=== PATIENT | male | born 1965 | race Caucasian/White ===

== ENCOUNTER 2017-01-07 12:11 | Emergency (ER) | payer BC ==
[2017-01-07 12:20] VITALS: BP 125/74
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
--- NOTE | 2017-01-07 13:14 | RAD ---
INDICATION: Cough. COMPARISON: Comparison is made with prior study from October 09, 2011. TECHNIQUE: Dual-energy PA and lateral views of the chest were obtained. FINDINGS: The heart is within normal limits in size. Mediastinal and hilar contours appear within normal limits. The lungs are clear. No pleural effusion is present. IMPRESSION: NO EVIDENCE FOR ACTIVE CARDIOPULMONARY DISEASE.
== END 2017-01-07 13:19 | disposition home or self-care (01) ==
LOC: UCCORT 12:11
DX: J40 Bronchitis, not specified as acute or chronic (principal); S29.011A Strain of muscle and tendon of front wall of thorax, initial encounter; X58.XXXA Exposure to other specified factors, initial encounter; Y93.9 Activity, unspecified; Y92.9 Unspecified place or not applicable; M94.0 Chondrocostal junction syndrome [Tietze]; F41.9 Anxiety disorder, unspecified; F17.210 Nicotine dependence, cigarettes, uncomplicated
CPT/HCPCS: 71020; 93005; 99212; G0463

== ENCOUNTER 2017-05-30 08:18 | Emergency (ER) | payer BC ==
[2017-05-30 08:36] VITALS: BP 116/79
--- NOTE | 2017-05-30 08:47 | UC ---
Throat Pain/Nasal Ismael HPI - HPI Summary HPI Summary: sinus pain and pressure x 7 days + nasal congestion , cough , pnd, no fever, no chills - History of Current Complaint Chief Complaint: UCRespiratory Stated Complaint: SINUS COMPLAINT Time Seen by Provider: 05/30/17 08:43 Hx Obtained From: Patient Onset/Duration: Gradual Onset, Lasting Weeks - 1, Still Present Severity: Moderate Cough: Nonproductive Associated Signs & Symptoms: Positive: Sinus Discomfort, Nasal Discharge. Negative: Dysphagia, FB Sensation, Wheezing, Hoarseness, Fever, Rash - Allergies/Home Medications Allergies/Adverse Reactions: Allergies Allergy/AdvReac Type Severity Reaction Status Date / Time No Known Allergies Allergy Verified 05/30/17 08:29 Home Medications: Home Medications Dasatinib [Sprycel] 20 mg PO DAILY 05/30/17 [History Confirmed 05/30/17] PMH/Surg Hx/FS Hx/Imm Hx Previously Healthy: Yes Other History Of: Negative For: HIV, Hepatitis B, Hepatitis C, Anticoagulant Therapy - Surgical History Surgical History: Yes Surgery Procedure, Year, and Place: appendectomy. tonsillectomy - Family History Known Family History: Positive: Hypertension Negative: Cardiac Disease, Diabetes - Social History Alcohol Use: Weekly Alcohol Amount: twice weekly Substance Use Type: None Smoking Status (MU): Heavy Every Day Tobacco Smoker Type: Cigarettes Amount Used/How Often: 1/2 ppd Length of Time of Smoking/Using Tobacco: 30 years Household Exposure Type: Cigarettes - Immunization History Most Recent Influenza Vaccination: none Review of Systems Constitutional: Negative Skin: Negative Eyes: Negative ENT: Nasal Discharge, Sinus Congestion, Sinus Pain/Tenderness Respiratory: Cough Cardiovascular: Negative Gastrointestinal: Negative Genitourinary: Negative Is Patient Immunocompromised?: No All Other Systems Reviewed And Are Negative: Yes Physical Exam Triage Information Reviewed: Yes Appearance: Well-Appearing, No Pain Distress, Well-Nourished Vital Signs: Initial Vital Signs Temp 99.2 F 05/30/17 08:31 Pulse 66 05/30/17 08:31 Resp 18 05/30/17 08:31 BP 116/79 05/30/17 08:31 Pulse Ox 96 05/30/17 08:31 Vital Signs Reviewed: Yes Eyes: Positive: Conjunctiva Clear ENT: Positive: Normal ENT inspection, Pharyngeal erythema, Nasal congestion, Nasal drainage, TMs normal Neck: Positive: Supple, Nontender, No Lymphadenopathy Respiratory: Positive: Chest non-tender, Lungs clear, Normal breath sounds Cardiovascular: Positive: RRR, No Murmur, Pulses Normal Throat Pain/Nasal Course/Dx - Differential Dx/Diagnosis Provider Diagnoses: sinusitis Discharge - Discharge Plan Condition: Stable Disposition: HOME Prescriptions: Amoxicillin/Clavulanate TAB* [Augmentin TAB 875*] 875 mg PO BID #20 tab Patient Education Materials: Sinusitis (ED) Referrals: Elías Resendez DO [Primary Care Provider] - If Needed
== END 2017-05-30 08:54 | disposition home or self-care (01) ==
LOC: UCCORT 08:18
DX: J32.9 Chronic sinusitis, unspecified (principal); F17.210 Nicotine dependence, cigarettes, uncomplicated
CPT/HCPCS: 99212; G0463

== ENCOUNTER 2018-01-13 13:40 | Emergency (ER) | payer BC ==
[2018-01-13 13:58] VITALS: BP 125/72
--- NOTE | 2018-01-13 14:41 | UC ---
Abdominal Pain Male HPI - HPI Summary HPI Summary: C/O dull aching lower abdominal/ suprapubic pain with some lower back pain as well, more on the left side. No fevers/ sweats or chills. - History of Current Complaint Chief Complaint: UCAbdominalPain Stated Complaint: LOWER ABD PAIN Time Seen by Provider: 01/13/18 14:34 Hx Obtained From: Patient Onset/Duration: Sudden Onset, Lasting Weeks - 1, Still Present, Worse Since - onset Severity Initially: Mild Severity Currently: Moderate Pain Intensity: 5 Location: Suprapubic Radiates to: Back Character: Aching, Dull Associated Signs And Symptoms: Positive: Constipation. Negative: Fever, Blood in Stool, Vomiting, Diarrhea - Risk Factors Cardiac Risk Factors: Smoking - Allergies/Home Medications Allergies/Adverse Reactions: Allergies Allergy/AdvReac Type Severity Reaction Status Date / Time No Known Allergies Allergy Verified 01/13/18 13:50 Home Medications: Home Medications Ibuprofen TAB* [Advil TAB*] 400 mg PO Q6H PRN 01/13/18 [History Confirmed ] PMH/Surg Hx/FS Hx/Imm Hx - Additional Past Medical History Additional PMH: CML Other History Of: Negative For: HIV, Hepatitis B, Hepatitis C, Anticoagulant Therapy - Surgical History Surgical History: Yes Surgery Procedure, Year, and Place: appendectomy. tonsillectomy - Family History Known Family History: Positive: Hypertension Negative: Cardiac Disease, Diabetes - Social History Occupation: Employed Full-time Lives: With Family Alcohol Use: Occasionally Alcohol Amount: twice weekly Substance Use Type: None Smoking Status (MU): Light Every Day Tobacco Smoker Type: Cigarettes Amount Used/How Often: 1/2 ppd Length of Time of Smoking/Using Tobacco: 30 years Have You Smoked in the Last Year: Yes Household Exposure Type: Cigarettes Cessation Counseling: Patient Advised to Stop - Immunization History Most Recent Influenza Vaccination: none Review of Systems Gastrointestinal: Abdominal Pain Genitourinary: Urgency Is Patient Immunocompromised?: Yes - CML All Other Systems Reviewed And Are Negative: Yes Physical Exam Triage Information Reviewed: Yes Appearance: Well-Appearing, No Pain Distress, Well-Nourished Vital Signs: Initial Vital Signs Temp 98.6 F 01/13/18 13:51 Pulse 62 01/13/18 13:51 Resp 17 01/13/18 13:51 BP 125/72 01/13/18 13:51 Pulse Ox 98 01/13/18 13:51 Vital Signs Reviewed: Yes Eyes: Positive: Conjunctiva Clear ENT Exam: Normal ENT: Positive: Pharynx normal, TMs normal - but obstructing wax AD Dental: Positive: Dental Fracture @ Neck exam: Normal Respiratory Exam: Normal Cardiovascular Exam: Normal Abdomen Description: Positive: No Organomegaly, Soft. Negative: Nontender - LLQ suprapubic, CVA Tenderness (R), CVA Tenderness (L), Peritoneal Signs Bowel Sounds: Positive: Present Musculoskeletal Exam: Normal Neurological Exam: Normal Psychological Exam: Normal Skin Exam: Normal Abd Pain Male Course/Dx - Differential Dx/Clinical Impression Differential Diagnosis/HQI/PQRI: Prostatitis, Renal Colic, Ureteral Stone, Urinary Tract Infection Provider Diagnoses: Acute prostatitis Discharge - Sign-Out/Discharge Documenting (check all that apply): Discharge/Admit/Transfer - Discharge Plan Condition: Stable Disposition: HOME Prescriptions: DOXYcycline CAP(*) [DOXYcycline 100MG CAP(*)] 100 mg PO BID #30 cap Sulfamethox/Trimethoprim DS* [Bactrim DS 800/160 TAB*] 1 tab PO BID #30 tab Patient Education Materials: Prostatitis (ED), Doxycycline (By mouth) Referrals: Jorge Galvan DO [Primary Care Provider] - - Billing Disposition and Condition Condition: STABLE Disposition: HOME
== END 2018-01-13 14:55 | disposition home or self-care (01) ==
LOC: UCCORT 13:40
DX: N41.0 Acute prostatitis (principal); F17.210 Nicotine dependence, cigarettes, uncomplicated
CPT/HCPCS: 81003; 99212; G0463

== ENCOUNTER 2018-06-26 16:37 | Emergency (ER) | payer BC ==
--- OUTSIDE RECORDS SUMMARY | 2018-06-26 16:46 | XMS REPORT ---
:1965 External Reference #:[id number] Author Organization [facility] Address [address], [address] [place] [address] Phone [phone] Care Team Providers Name Role Phone Elías Resendez DO Care Team Information Automatic Developer Unavailable Jorge Galvan DO Primary Care Physician Unavailable Payers Type Date Identification Numbers Payment Provider Subscriber Commercial Expires: Policy Number: Josefina Cervantes 2011 [id number] PayID: [id number] [address] [address] Medigap Part B Effective: 2013 Policy Number: Josefina Cervantes [id number] PayID: [id number] [address] [address] Problems Date Description Provider Status Onset: 11/21/2011 Chest pain Fabian Arshad MD, PhD Active Onset: 11/21/2011 Benign essential hypertension Fabian Arshad MD, PhD Active Onset: 11/21/2011 Tobacco user Fabian Arshad MD, PhD Active Onset: 11/28/2011 Sterilization Rodo Roper MD Active Onset: 01/25/2018 Hematuria syndrome Iesha Gilmore M.D. Active Onset: 01/25/2018 Acute prostatitis Iesha Gilmore M.D. Active Onset: 01/25/2018 Benign prostatic hypertrophy with Iesha Gilmore M.D. Active outflow obstruction Onset: 10/13/2017 Hemorrhoids without complication Jorge Shah DO Active Onset: 10/13/2017 Anemia Alyssa DO Jorge Active Onset: 10/13/2017 Chronic myeloid leukemia in Jorge ShahDO Active remission Onset: 03/28/2017 Acute upper respiratory infection, Sruthililiana JorgeDO Active unspecified Onset: 03/20/2017 Chronic myeloid leukemia Jorge Shah DO Active Onset: 03/14/2017 Substance abuse counseling Minesh ShahewDO Active Onset: 03/14/2017 Leukocytosis Jorge Shah DO Active Family History Date Family Member(s) Problem(s) Comments General No known family history of CAD. Father Prostate Disease Father Enlarged Prostate Children 2 Healthy Siblings 5 Healthy Aunt due to Prostate Cancer () Social History Type Date Description Comments Marital Status Lives With Spouse Diet Patient follows no dietary restrictions Occupation [employer] Cigarette Use Current Cigarette Smoker 1 Pack Daily for 25 years ETOH Use Occasionally consumes alcohol ETOH Use Currently consumes alcohol socially Smoking Patient is a current smoker, smokes every day Recreational Drug Use Denies Drug Use Daily Caffeine Consumes on average 1 cup of regular coffee per day Allergies, Adverse Reactions, Alerts Date Description Reaction Status Severity Comments 09/13/2010 NKDA active Medications Medication Date Status Form Strength Qnty SIG Indications Ordering Provider Miralax 02/02 Active Packet 3350NF 36uni 1 to 2 K59.09 ts packets by Christopher mouth as Waylon Mcmillan needed constipation Metronidazole 02/02 Active Tablets 500mg 30tab 1 by mouth K57.30 s three times Christopher a day Waylon Mcmillan Nupercainal 02/02 Active Ointment 1% 85.2g use four C92.11 m times a day Christopher as needed on H.Alek. anus for pain Nitro-bid 02/02 Active Ointment 2% 60gm use pea C92.11 sized amount Christopher to anal area Waylon Mcmillan four times a day prn. hold for hypotension or headache or nausea Tamsulosin HCL 01/25 Active Capsules 0.4mg 30cap 1 by mouth N40.1 Deirdre, /2018 s every day at [facility], bedtime M.DKarri Sprycel 03/21 Active Tablets 100mg 30tab 1 by mouth C92.10 Alyssa, s every day Jorge, DO Doxycycline Active Capsules 100mg Tommy Matthew Hyclate /0000 Sulfamethoxazo Active Tablets 800-160mg Tommy Matthew le/Trimethopri / MD nevarez DS Amoxicillin/Cl 02/02 Hx Tablets 875-125mg 20tab 1 by mouth K57.30 Mayieimiladys avulanate s twice a day Floyd Mcmillan M.D. 02/12 Augmentin 03/28 Hx Tablets 500-125mg 21tab 1 by mouth J06.9 Alyssa, s three times Jorge, DO - a day 06/30 Oxycodone HCL 03/21 Hx Tablets 5mg 14tab 1 tablet by C92.10 Alyssa, s mouth every Jorge, DO - 6 hours as 06/30 needed Sprycel 03/20 Hx Tablets 100mg 30tab 1 tablet by C92.10 Alyssa, s mouth Jorge, DO - everyday 03/21 Chantix 03/14 Hx Tablets 1mg 30tab 1 tablet po Z71.6 Alyssa, s qday Jorge, DO - 06/30 Plavix 04/11 Hx Tablets 75mg 14tab 1 po qd 786.59 Fabian Arshad /Barbara Khan MD, PhD - 03/14 Alprazolam Hx Tablets 0.25mg 60tab 1/2 tab po Unknown /0000 s qd - 06/30 Alprazolam 00 Hx Tablets 0.25mg qday for Unknown /0000 anxiety prn - 02/02 Sulfamethoxazo Hx Tablets 800-160mg Tommy Matthew le/Trimethopri / MD roque CHING Sprycel Hx Tablets 100mg take 1 Unknown /0000 tablet by - mouth once 04/10 daily mdd mdd 1 mdd 1 Medications Administered in Office Medication Date Status Form Strength Qnty SIG Indications Ordering Provider Bone Marrow Administered Injection Merissa Shah DO W/Bone Marrow BX Through Same Incision Vital Signs Date Vital Result Comment 02/12/2018 BP Systolic 146 mmHg BP Diastolic 77 mmHg Body Temperature 97.9 F Heart Rate 87 /min Respiratory Rate 16 /min Weight 197.00 lb O2 % BldC Oximetry 98 % 02/02/2018 BP Systolic 157 mmHg BP Diastolic 84 mmHg Body Temperature 98.3 F Heart Rate 116 /min Respiratory Rate 19 /min Height 68 inches 5'8" Weight 199.00 lb BMI (Body Mass Index) 30.3 kg/m2 BSA (Body Surface Area) 2.04 m2 [place] body weight in kilograms 70 O2 % BldC Oximetry 97 % 01/25/2018 BP Systolic Sitting Left Arm 152 mmHg BP Diastolic Sitting Left Arm 92 mmHg Body Temperature 98.9 F Heart Rate 79 /min Height 68 inches 5'8" Weight 199.00 lb BMI (Body Mass Index) 30.3 kg/m2 BSA (Body Surface Area) 2.04 m2 [place] body weight in kilograms 70 O2 % BldC Oximetry 96 % 10/25/2017 BP Systolic Sitting Left Arm 120 mmHg BP Diastolic Sitting Left Arm 72 mmHg Heart Rate 68 /min Respiratory Rate 16 /min Height 68 inches 5'8" Weight 210.00 lb BMI (Body Mass Index) 31.9 kg/m2 BSA (Body Surface Area) 2.09 m2 [place] body weight in kilograms 70 10/13/2017 BP Systolic 140 mmHg BP Diastolic 84 mmHg Body Temperature 96.5 F Heart Rate 67 /min Weight 209.38 lb O2 % BldC Oximetry 99 % 06/30/2017 BP Systolic 140 mmHg BP Diastolic 76 mmHg Body Temperature 98.0 F Heart Rate 67 /min Weight 204.00 lb O2 % BldC Oximetry 97 % 03/28/2017 BP Systolic 118 mmHg BP Diastolic 79 mmHg Body Temperature 98.2 F Heart Rate 75 /min Weight 206.25 lb O2 % BldC Oximetry 96 % 03/20/2017 BP Systolic 147 mmHg BP Diastolic 95 mmHg Body Temperature 97.1 F Heart Rate 83 /min Weight 206.00 lb O2 % BldC Oximetry 97 % 03/14/2017 BP Systolic 141 mmHg BP Diastolic 90 mmHg Body Temperature 96.6 F Heart Rate 76 /min Height 68.6 inches 5'8.60" Weight 206.38 lb BMI (Body Mass Index) 30.8 kg/m2 BSA (Body Surface Area) 2.08 m2 [place] body weight in kilograms 71 O2 % BldC Oximetry 97 % 04/11/2014 BP Systolic Sitting Right Arm 128 mmHg BP Diastolic Sitting Right Arm 88 mmHg Heart Rate 65 /min Respiratory Rate 16 /min Height 67.50 inches 5'7.50" Weight 206.00 lb BMI (Body Mass Index) 31.8 kg/m2 BSA (Body Surface Area) 2.06 m2 04/10/2013 BP Systolic Sitting Right Arm 144 mmHg BP Diastolic Sitting Right Arm 88 mmHg Heart Rate 60 /min Respiratory Rate 18 /min Height 67.50 inches 5'7.50" Weight 201.00 lb BMI (Body Mass Index) 31.0 kg/m2 BSA (Body Surface Area) 2.04 m2 04/05/2012 BP Systolic Sitting Right Arm 128 mmHg BP Diastolic Sitting Right Arm 88 mmHg Heart Rate 82 /min Respiratory Rate 16 /min Height 67.50 inches 5'7.50" Weight 205.00 lb BMI (Body Mass Index) 31.6 kg/m2 01/04/2012 BP Systolic Sitting Right Arm 124 mmHg BP Diastolic Sitting Right Arm 94 mmHg Heart Rate 58 /min Regular Respiratory Rate 16 /min Height 67.50 inches 5'7.50" Weight 203.00 lb BMI (Body Mass Index) 31.3 kg/m2 11/28/2011 BP Systolic Sitting Right Arm 112 mmHg BP Diastolic Sitting Right Arm 77 mmHg Heart Rate 67 /min Respiratory Rate 16 /min Height 67.50 inches 5'7.50" Weight 201.00 lb BMI (Body Mass Index) 31.0 kg/m2 11/21/2011 BP Systolic Sitting Right Arm 126 mmHg BP Diastolic Sitting Right Arm 88 mmHg BP Systolic Sitting Left Arm 122 mmHg BP Diastolic Sitting Left Arm 90 mmHg Heart Rate 76 /min Regular Respiratory Rate 16 /min Height 67.50 inches 5'7.50" Weight 198.00 lb BMI (Body Mass Index) 30.6 kg/m2 09/13/2010 Height 67.50 inches 5'7.50" Weight 209.00 lb BMI (Body Mass Index) 32.2 kg/m2 Results Test Date Test Result H/L Range Note CBS W/Automated Diff 06/07/2018 White Blood Count 7.7 K/uL 3.4-10.5 1 Red Blood Count 4.68 M/uL 4.20-5.80 1 Hemoglobin 10.7 gm/dL Low 12.8-17.0 1 Hematocrit 32.0 % Low 38.0-48.0 1 Mean Cell Volume 68.4 fl Low 80.0-96.0 1 Mean Corpuscular HGB 22.9 pg Low 27.0-33.0 1 Mean Corpuscular HGB Conc 33.4 g/dL 31.7-36.0 1 Platelet Count 259 K/uL 155-360 1 Red Cell Distri Width SD 42.2 fl 36-51 1 Red Cell Distri Width %CV 18.4 % High 11.6-15.8 1 Mean Platelet Volume 10.9 fL High 6.6-10.6 1 Neut% 63.9 % 33.0-73.0 1 Lymph % 25.8 % 20.0-42.0 1 Cole % 8.3 % 0.0-10.0 1 Eo% 1.4 % 0.0-6.6 1 Bas% 0.6 % 0.0-1.1 1 Neut# 4.92 K/uL 1.8-7.0 1 Lymph # 1.99 K/uL 1.0-4.0 1 Cole # 0.64 K/uL 0.0-0.8 1 Eos # 0.11 K/uL 0.0-0.5 1 Baso # 0.05 K/uL 0.0-0.1 1 Comprehensive Metabolic Panel 06/07/2018 Glucose 92 mg/dL 74-106 1 BUN 20 mg/dL High 7-18 1 Creatinine 1.1 mg/dL 0.6-1.3 1 Glom Filtration Rate, Estimate >60 mL/min >60 1 If >60 mL/min >60 1, 2 BUN/Creat 18.1 ratio 1 Sodium 141 mmol/L 136-145 1 Potassium 3.9 mmol/L 3.5-5.1 1 Chloride 109 mmol/L High 98-107 1 Carbon Dioxide 26 mmol/L 21-32 1 Anion Gap 6 mEq/L Low 8-16 1 Calcium 8.3 mg/dL Low 8.5-10.1 1 Total Protein 7.3 g/dL 6.4-8.2 1 Albumin 3.9 g/dL 3.4-5.0 1 Globulin 3.4 g/dL 1.9-4.3 1 Alb/Glob 1.1 ratio 1 Bilirubin,Total 1.0 mg/dL 0.2-1.0 1 Sgot/Ast 18 U/L 15-37 1 SGPT/Alt 14 U/L 12-78 1 Alkaline Phosphatase 53 U/L 45-117 1 Slide Review 06/07/2018 Slide Review DIFF ORDERED 1 Laboratory test finding 06/07/2018 Path Review: <pending> 1 Differential-WBC Confirm 06/07/2018 Total Cells Counted 100 #CELLS 1 Neutrophils% 65 % 33-73 1 Lymph% 24 % 20-42 1 Monocyte% 8 % 0-10 1 Eosinophil% 2 % 0-5 1 Basophil% 1 % 0-2 1 Platelet Estimate NORMAL 1 Anisocytosis 1+ 1 Microcytosis 1+ 1 Basophilic Stippling 1+ 1 Ua RFX Micro & Culture II 01/25/2018 Urine Color YELLOW Yellow 3 Urine Clarity CLEAR Clear 3 Urine Glucose - Dipstick NEGATIVE mg/dL Negative 3 Urine Bilirubin - Dipstick NEGATIVE Negative 3 Urine Ketone NEGATIVE mg/dL Negative 3 Urine Specific [place] 1.020 1.010-1.030 3 Urine Blood SMALL Negative 3 Urine PH 7.0 6.5-7.5 3 Urine Protein - Dipstick NEGATIVE mg/dL Negative 3 Urine Urobilinogen - Dipstick 2.0 E.U./dL High 0.2-1.0 3 Urine Nitrite - Dipstick NEGATIVE Negative 3 Urine Leuk Esterase NEGATIVE Negative 3 Urine RBC 0-2 rbc/hpf 0-2 3 Urine WBC 0-2 wbc/hpf 0-7 3 Urine Epithelial Cells FEW /lpf None Seen 3 Source: URINE, CLEAN CAT <SEE NOTE> 3, 4 Urinalysis With Microscopic 01/22/2018 Source: Urine, Clean Cat <See Note> 5, 6 Urine Bacteria None Seen None Seen 5 Urine Bilirubin - Dipstick Negative Negative 5 Urine Blood Moderate Negative 5 Urine Clarity Clear Clear 5 Urine Color Yellow Yellow 5 Urine Epithelial Cells Few /lpf None Seen 5 Urine Glucose - Dipstick Negative mg/dL Negative 5 Urine Ketone Negative mg/dL Negative 5 Urine Leuk Esterase Negative Negative 5 Urine Nitrite - Dipstick Negative Negative 5 Urine PH 6.0 1 Low 6.5-7.5 5 Urine Protein - Dipstick Negative mg/dL Negative 5 Urine RBC 0-2 rbc/hpf 0-2 5 Urine Specific [place] 1.025 1 1.010-1.030 5 Urine Urobilinogen - Dipstick 0.2 E.U./dL 0.2-1.0 5 Urine WBC 0-2 wbc/hpf 0-7 5 Urinalysis With Microscopic 12/16/2017 Source: Urine, Clean Cat <See Note> 7, 8 Urine Bilirubin - Dipstick Negative Negative 7 Urine Blood Large Negative 7 Urine Clarity Clear Clear 7 Urine Color Yellow Yellow 7 Urine Epithelial Cells Very Few /lpf None Seen 7 Urine Glucose - Dipstick Negative mg/dL Negative 7 Urine Ketone Negative mg/dL Negative 7 Urine Leuk Esterase Negative Negative 7 Urine Mucus Small None Seen 7 Urine Nitrite - Dipstick Negative Negative 7 Urine PH 5.5 1 Low 6.5-7.5 7 Urine Protein - Dipstick 100 mg/dL High Negative 7 Urine RBC 0-2 rbc/hpf 0-2 7 Urine Specific [place] >=1.030 1.010-1.030 7 Urine Urobilinogen - Dipstick 0.2 E.U./dL 0.2-1.0 7 Urine WBC 0-2 wbc/hpf 0-7 7 Laboratory test finding 10/13/2017 Path Review: <pending> 9 RBC Morphology Only 10/13/2017 Microcytosis 2+ 9 Comment . 9 Slide Review 10/13/2017 Slide Review (SEE NOTE) 9, 10 Comprehensive Metabolic Panel 10/13/2017 Glucose 102 mg/dL 74-106 9 BUN 22 mg/dL High 7-18 9 Creatinine 1.1 mg/dL 0.6-1.3 9 Glom Filtration Rate, Estimate >60 mL/min >60 9 If >60 mL/min >60 9, 11 BUN/Creat 20.0 ratio 9 Sodium 140 mmol/L 136-145 9 Potassium 4.1 mmol/L 3.5-5.1 9 Chloride 109 mmol/L High 98-107 9 Carbon Dioxide 27 mmol/L 21-32 9 Anion Gap 4 mEq/L Low 8-16 9 Calcium 8.4 mg/dL Low 8.5-10.1 9 Total Protein 7.6 g/dL 6.4-8.2 9 Albumin 4.1 g/dL 3.4-5.0 9 Globulin 3.5 g/dL 1.9-4.3 9 Alb/Glob 1.2 ratio 9 Bilirubin,Total 0.8 mg/dL 0.2-1.0 9 Sgot/Ast 16 U/L 15-37 9 SGPT/Alt 17 U/L 12-78 9 Alkaline Phosphatase 54 U/L 45-117 9 [facility] W/Automated Diff 10/13/2017 White Blood Count 15.5 K/uL High 3.4-10.5 9 Red Blood Count 5.25 M/uL 4.20-5.80 9 Hemoglobin 11.5 gm/dL Low 12.8-17.0 9 Hematocrit 35.1 % Low 38.0-48.0 9 Mean Cell Volume 66.9 fl Low 80.0-96.0 9 Mean Corpuscular HGB 21.9 pg Low 27.0-33.0 9 Mean Corpuscular HGB Conc 32.8 g/dL 31.7-36.0 9 Platelet Count 235 K/uL 155-360 9 Red Cell Distri Width SD 41.7 fl 36-51 9 Red Cell Distri Width %CV 18.7 % High 11.6-15.8 9 Mean Platelet Volume 10.7 fL High 6.6-10.6 9 Neut% 63.6 % 33.0-73.0 9 Lymph % 27.8 % 20.0-42.0 9 Cole % 7.1 % 0.0-10.0 9 Eo% 1.0 % 0.0-6.6 9 Bas% 0.5 % 0.0-1.1 9 Neut# 9.88 K/uL High 1.8-7.0 9 Lymph # 4.32 K/uL High 1.0-4.0 9 Cole # 1.11 K/uL High 0.0-0.8 9 Eos # 0.16 K/uL 0.0-0.5 9 Baso # 0.07 K/uL 0.0-0.1 9 [facility] W/Automated Diff 06/30/2017 White Blood Count 15.7 K/uL High 3.4-10.5 12 Red Blood Count 5.00 M/uL 4.20-5.80 12 Hemoglobin 10.8 gm/dL Low 12.8-17.0 12 Hematocrit 33.2 % Low 38.0-48.0 12 Mean Cell Volume 66.4 fl Low 80.0-96.0 12, 13 Mean Corpuscular HGB 21.6 pg Low 27.0-33.0 12 Mean Corpuscular HGB Conc 32.5 g/dL 31.7-36.0 12 Platelet Count 181 K/uL 150-400 12 Red Cell Distri Width SD 48.2 fl 36-51 12 Red Cell Distri Width %CV 21.5 % High 11.6-15.8 12 Mean Platelet Volume 10.9 fL High 6.6-10.6 12 Neut% 58.2 % 33.0-73.0 12 Lymph % 27.3 % 20.0-42.0 12 Cole % 12.6 % High 0.0-10.0 12 Eo% 1.5 % 0.0-6.6 12 Bas% 0.4 % 0.0-1.1 12 Neut# 9.14 K/uL High 1.8-7.0 12 Lymph # 4.28 K/uL High 1.0-4.0 12 Cole # 1.98 K/uL High 0.0-0.8 12 Eos # 0.23 K/uL 0.0-0.5 12 Baso # 0.07 K/uL 0.0-0.1 12 Comprehensive Metabolic Panel 06/30/2017 Glucose 83 mg/dL 74-106 12 BUN 20 mg/dL High 7-18 12 Creatinine 1.2 mg/dL 0.6-1.3 12 Glom Filtration Rate, Estimate >60 mL/min >60 12 If >60 mL/min >60 12, 14 BUN/Creat 16.6 ratio 12 Sodium 141 mmol/L 136-145 12 Potassium 4.0 mmol/L 3.5-5.1 12 Chloride 111 mmol/L High 98-107 12 Carbon Dioxide 23 mmol/L 21-32 12 Anion Gap 7 mEq/L Low 8-16 12 Calcium 9.2 mg/dL 8.5-10.1 12 Total Protein 7.5 g/dL 6.4-8.2 12 Albumin 4.1 g/dL 3.4-5.0 12 Globulin 3.4 g/dL 1.9-4.3 12 Alb/Glob 1.2 ratio 12 Bilirubin,Total 0.7 mg/dL 0.2-1.0 12 Sgot/Ast 27 U/L 15-37 12 SGPT/Alt 14 U/L 12-78 12 Alkaline Phosphatase 60 U/L 45-117 12 Laboratory test finding 06/30/2017 Slide Review <pending> 12 Path Review: 06/30/2017 Path Review: (SEE NOTE) 12, 15 RBC Morphology Only 06/30/2017 Polychromasia 0-1+ 12 Hypochromia 0-1+ 12 Poikilocytosis 1+ 12 Anisocytosis 1+ 12 Microcytosis 1+ 12 Macrocytosis 0-1+ 12 Target Cells 1+ 12 Ovalocytes 0-1+ 12 RBC Morphology Only 06/12/2017 Polychromasia 0-1+ Hypochromia 0-1+ Poikilocytosis 0-1+ Anisocytosis 1+ Microcytosis 1+ Basophilic Stippling 0-1+ Spherocyte 0-1+ Tear Drop Cells 0-1+ Elliptocytes 0-1+ Laboratory test finding 06/12/2017 Slide Review <pending> Path Review: <pending> CBS W/Automated Diff 06/12/2017 White Blood Count 11.2 K/uL High 3.4-10.5 Red Blood Count 5.08 M/uL 4.20-5.80 Hemoglobin 10.7 gm/dL Low 12.8-17.0 Hematocrit 32.8 % Low 38.0-48.0 Mean Cell Volume 64.6 fl Low 80.0-96.0 Mean Corpuscular HGB 21.1 pg Low 27.0-33.0 Mean Corpuscular HGB Conc 32.6 g/dL 31.7-36.0 Platelet Count 296 K/uL 150-400 Red Cell Distri Width SD 46.6 fl 36-51 Red Cell Distri Width %CV 21.4 % High 11.6-15.8 Mean Platelet Volume 10.9 fL High 6.6-10.6 Neut% 64.5 % 33.0-73.0 Lymph % 25.0 % 20.0-42.0 Cole % 8.5 % 0.0-10.0 Eo% 1.6 % 0.0-6.6 Bas% 0.4 % 0.0-1.1 Neut# 7.21 K/uL High 1.8-7.0 Lymph # 2.80 K/uL 1.0-4.0 Cole # 0.95 K/uL High 0.0-0.8 Eos # 0.18 K/uL 0.0-0.5 Baso # 0.05 K/uL 0.0-0.1 Neutrophils/leuk NFr 04/16/2017 Neutrophils/leuk NFr 54.8 33.0-73.0 Bld Auto Bld Auto PMV Bld Auto 04/16/2017 PMV Bld Auto 10.0 6.6-10.6 Platelets [#/volume] 04/16/2017 Platelets [#/volume] 229 150-400 in Blood by in Blood by Automated count Automated count Potassium SerPl-sCnc 04/16/2017 Potassium SerPl-sCnc 4.1 3.5-5.1 Prot SerPl-mCnc 04/16/2017 Prot SerPl-mCnc 6.6 6.4-8.2 RDW RBC Auto 04/16/2017 RDW RBC Auto 38.8 36-51 RDW RBC Auto-Rto 04/16/2017 RDW RBC Auto-Rto 18.9 High 11.6-15.8 Serum or plasma 04/16/2017 Serum or plasma 372 73-393 lipase measurement lipase measurement (enzymatic acti (enzymatic activity/volume) Serum or plasma 04/16/2017 Serum or plasma 0.5 0.2-1.0 total bilirubin total bilirubin measurement (mass/ measurement (mass/volume) Sodium SerPl-sCnc 04/16/2017 Sodium SerPl-sCnc 143 136-145 Unloinc 04/16/2017 Unloinc See Note 16 WBC # Bld Auto 04/16/2017 WBC # Bld Auto 7.2 3.4-10.5 Amorphous sediment 04/16/2017 Amorphous sediment Small Negative 17 [Presence] in Urine [Presence] in Urine sediment by sediment by Light microscopy Color Ur 04/16/2017 Color Ur Yellow Yellow 17 Epithelial cells 04/16/2017 Epithelial cells None Seen None Seen 17 [Presence] in Urine [Presence] in Urine sediment by L sediment by Light microscopy Ketones Ur 04/16/2017 Ketones Ur Negative Negative 17 Strip.auto-mCnc Strip.auto-mCnc Leukocyte esterase 04/16/2017 Leukocyte esterase Negative Negative 17 Ur Ql Strip.auto Ur Ql Strip.auto Nitrite Ur Ql 04/16/2017 Nitrite Ur Ql Negative Negative 17 Strip.auto Strip.auto Prot Ur 04/16/2017 Prot Ur Negative Negative 17 Strip.auto-mCnc Strip.auto-mCnc Specific gravity of 04/16/2017 Specific gravity of 1.025 1.010-1.030 17 Urine by Automated Urine by Automated test strip test strip Urine appearance 04/16/2017 Urine appearance Clear Clear 17 determination determination Urine glucose 04/16/2017 Urine glucose Negative Negative 17 measurement by measurement by automated test strip automated test strip (mass/volume) Urine hemoglobin 04/16/2017 Urine hemoglobin Large High Negative 17 detection by detection by automated test strip automated test strip Urine total 04/16/2017 Urine total Negative Negative 17 bilirubin detection bilirubin detection by automated test by automated test strip Urobilinogen Ur 04/16/2017 Urobilinogen Ur 0.2 0.2-1.0 17 Strip-aCnc Strip-aCnc pH Ur Strip.auto 04/16/2017 pH Ur Strip.auto 5.5 Low 6.5-7.5 17 Urinalysis With 04/16/2017 Source: Urine, Clean 17, Microscopic Cat <See 18 Note> Urine Amorph Sediment Small Negative 17 Urine Bilirubin - Dipstick Negative Negative 17 Urine Blood Large Negative 17 Urine Clarity Clear Clear 17 Urine Color Yellow Yellow 17 Urine Epithelial Cells None Seen /lpf None Seen 17 Urine Glucose - Dipstick Negative mg/dL Negative 17 Urine Ketone Negative mg/dL Negative 17 Urine Leuk Esterase Negative Negative 17 Urine Nitrite - Dipstick Negative Negative 17 Urine PH 5.5 1 Low 6.5-7.5 17 Urine Protein - Dipstick Negative mg/dL Negative 17 Urine RBC 5-10 rbc/hpf High 0-2 17 Urine Specific [place] 1.025 1 1.010-1.030 17 Urine Urobilinogen - Dipstick 0.2 E.U./dL 0.2-1.0 17 Urine WBC 0-2 wbc/hpf 0-7 17 Alp SerPl-cCnc 04/16/2017 Alp SerPl-cCnc 73 45-117 Alt SerPl-cCnc 04/16/2017 Alt SerPl-cCnc 16 12-78 Albumin SerPl-mCnc 04/16/2017 Albumin SerPl-mCnc 3.7 3.4-5.0 Albumin/Glob SerPl 04/16/2017 Albumin/Glob SerPl 1.3 Anion Gap SerPl-sCnc 04/16/2017 Anion Gap SerPl-sCnc 7 Low 8-16 Aspartate 04/16/2017 Aspartate 16 15-37 aminotransferase aminotransferase [Enzymatic activity/vol [Enzymatic activity/volume] in Serum or Plasma Automated erythrocyte 04/16/2017 Automated erythrocyte 20.7 Low 27.0-33.0 mean corpuscular mean corpuscular hemoglobin hemoglobin (mass per erythrocyte) Automated erythrocyte 04/16/2017 Automated erythrocyte 33.3 31.7-36.0 mean corpuscular mean corpuscular hemoglobin hemoglobin concentration measurement (mass/volume) BUN SerPl-mCnc 04/16/2017 BUN SerPl-mCnc 21 High 7-18 BUN/Creat SerPl 04/16/2017 BUN/Creat SerPl 19.0 Basophils [#/volume] in 04/16/2017 Basophils [#/volume] in 0.04 0.0-0.1 Blood by Automated Blood by Automated count count Basophils/leuk NFr Bld 04/16/2017 Basophils/leuk NFr Bld 0.6 0.0-1.1 Auto Auto Blood erythrocytes 04/16/2017 Blood erythrocytes 5.22 4.20-5.80 automated count automated count (number/volume) (number/volume) Blood hemoglobin 04/16/2017 Blood hemoglobin 10.8 Low 12.8-17.0 measurement measurement (mass/volume) (mass/volume) Blood monocytes 04/16/2017 Blood monocytes 0.72 0.0-0.8 automated count automated count (number/volume) (number/volume) Neutrophils # Bld Auto 04/16/2017 Neutrophils # Bld Auto 3.97 1.8-7.0 Monocytes/leuk NFr Bld 04/16/2017 Monocytes/leuk NFr Bld 10.0 0.0-10.0 Auto Auto MCV RBC Auto 04/16/2017 MCV RBC Auto 62.1 Low 80.0-96.0 Lymphocytes/leuk NFr 04/16/2017 Lymphocytes/leuk NFr 32.8 20.0-42.0 Bld Auto Bld Auto Lymphocytes [#/volume] 04/16/2017 Lymphocytes [#/volume] 2.37 1.0-4.0 in Blood by Automated in Blood by Automated count count Hematologic slide 04/16/2017 Hematologic slide Ni review by pathologist review by pathologist Hct VFr Bld Auto 04/16/2017 Hct VFr Bld Auto 32.4 Low 38.0-48.0 Glucose [Mass/volume] 04/16/2017 Glucose [Mass/volume] 105 74-106 in Serum or Plasma in Serum or Plasma Globulin Ser Calc-mCnc 04/16/2017 Globulin Ser Calc-mCnc 2.9 1.9-4.3 Eosinophil/leuk NFr Bld 04/16/2017 Eosinophil/leuk NFr Bld 1.8 0.0-6.6 Auto Auto Eosinophil # Bld Auto 04/16/2017 Eosinophil # Bld Auto 0.13 0.0-0.5 Creat SerPl-mCnc 04/16/2017 Creat SerPl-mCnc 1.1 0.6-1.3 Chloride SerPl-sCnc 04/16/2017 Chloride SerPl-sCnc 113 High 98-107 Calcium SerPl-mCnc 04/16/2017 Calcium SerPl-mCnc 8.2 Low 8.5-10.1 Co2 SerPl-sCnc 04/16/2017 Co2 SerPl-sCnc 23 21-32 Differential-WBC 03/28/2017 Total Cells Counted 100 #CELLS 19 Confirm Band% 4 % 0-8 19 Neutrophils% 60 % 33-73 19 Lymph% 28 % 20-42 19 Atypical Lymph% 2 % 0-7 19 Monocyte% 2 % 0-10 19 Eosinophil% 2 % 0-5 19 Basophil% 2 % 0-2 19 Platelet Estimate NORMAL 19 Polychromasia 0-1+ 19 Anisocytosis 0-1+ 19 Microcytosis 2+ 19 Basophilic Stippling 0-1+ 19 Schistocytes 0-1+ 19 Differential Comment LARGE PLATELETS <SEE NOTE> 19, 20 Path Review: 03/28/2017 Path Review: YARY 19, 21 Slide Review 03/28/2017 Slide Review DIFF ORDERED 19 Comprehensive Metabolic Panel 03/28/2017 Glucose 69 mg/dL Low 74-106 19 BUN 20 mg/dL High 7-18 19 Creatinine 1.2 mg/dL 0.6-1.3 19 Glom Filtration Rate, Estimate >60 mL/min >60 19 If >60 mL/min >60 19, 22 BUN/Creat 16.6 ratio 19 Sodium 140 mmol/L 136-145 19 Potassium 4.0 mmol/L 3.5-5.1 19 Chloride 108 mmol/L High 98-107 19 Carbon Dioxide 24 mmol/L 21-32 19 Anion Gap 8 mEq/L 8-16 19 Calcium 8.5 mg/dL 8.5-10.1 19 Total Protein 7.1 g/dL 6.4-8.2 19 Albumin 3.8 g/dL 3.4-5.0 19 Globulin 3.3 g/dL 1.9-4.3 19 Alb/Glob 1.2 ratio 19 Bilirubin,Total 0.8 mg/dL 0.2-1.0 19 Sgot/Ast 17 U/L 15-37 19 SGPT/Alt 16 U/L 12-78 19 Alkaline Phosphatase 71 U/L 45-117 19 CBS W/Automated Diff 03/28/2017 White Blood Count 15.8 K/uL High 3.4-10.5 19 Red Blood Count 5.94 M/uL High 4.20-5.80 19 Hemoglobin 12.3 gm/dL Low 12.8-17.0 19 Hematocrit 37.1 % Low 38.0-48.0 19 Mean Cell Volume 62.5 fl Low 80.0-96.0 19 Mean Corpuscular HGB 20.7 pg Low 27.0-33.0 19 Mean Corpuscular HGB Conc 33.2 g/dL 31.7-36.0 19 Platelet Count 286 K/uL 150-400 19 Red Cell Distri Width SD 39.2 fl 36-51 19 Red Cell Distri Width %CV 19.5 % High 11.6-15.8 19 Mean Platelet Volume 11.9 fL High 6.6-10.6 19, 23 Neut# 10.78 K/uL High 1.8-7.0 19 Lymph # 3.60 K/uL 1.0-4.0 19 Cole # 0.84 K/uL High 0.0-0.8 19 Eos # 0.15 K/uL 0.0-0.5 19 Baso # 0.45 K/uL High 0.0-0.1 19 Total Cells Counted 03/28/2017 Total Cells Counted 100 Bld Bld Neuts Seg/leuk NFr 03/28/2017 Neuts Seg/leuk NFr 60 33-73 Bld Manual Bld Manual Neuts Band/leuk NFr 03/28/2017 Neuts Band/leuk NFr 4 0-8 Bld Manual Bld Manual Monocytes/100 03/28/2017 Monocytes/100 2 0-10 leukocytes in Blood leukocytes in Blood by Manual count by Manual count Lymphocytes/100 03/28/2017 Lymphocytes/100 28 20-42 leukocytes in Blood leukocytes in Blood by Manual coun by Manual count Lymphocytes 03/28/2017 Lymphocytes 2 0-7 variant/100 variant/100 leukocytes in blood leukocytes in blood by man by manual count Eosinophil % 03/28/2017 Eosinophil % 2 0-5 Blood platelet 03/28/2017 Blood platelet Normal adequacy detection by adequacy detection light microsc by light microscopy Blood microcytes 03/28/2017 Blood microcytes 2+ detection by light detection by light microscopy microscopy Blood manual 03/28/2017 Blood manual Large Platelets differential comment differential comment Present interpretation n interpretation narrative Basophils/100 03/28/2017 Basophils/100 2 0-2 leukocytes in Blood leukocytes in Blood by Manual count by Manual count Helen direct serum 03/14/2017 Helen direct serum Negative Negative CRP SerPl hs-mCnc 03/14/2017 CRP SerPl hs-mCnc 2.68 <3.0 Dilute Jadon viper 03/14/2017 Dilute Jadon viper 39.5 0.0-47.0 venom time venom time Erythrocyte 03/14/2017 Erythrocyte 1 0-15 sedimentation rate by sedimentation rate 15 minute readin by 15 minute reading LA PPP-Imp 03/14/2017 LA PPP-Imp Comment: . Lupus anticoagulant 03/14/2017 Lupus anticoagulant 35.5 0.0-51.9 neutralization neutralization platelet time i platelet time in platelet poor plasma by coagulation assay Myelocytes/100 03/14/2017 Myelocytes/100 1 High -0 leukocytes in Blood leukocytes in Blood by Manual count by Manual count Rheumatoid factor 03/14/2017 Rheumatoid factor 61.4 High 0.0-15.0 [units/volume] in [units/volume] in serum by nephl serum by nephlometry Serum or plasma 03/14/2017 Serum or plasma 10.6 3.1-17.5 folate measurement folate measurement (mass/volume) (mass/volume) Serum or plasma 03/14/2017 Serum or plasma 1006 High 193-986 vitamin B12 vitamin B12 measurement measurement (mass/volu (mass/volume) TSH SerPl-aCnc 03/14/2017 TSH SerPl-aCnc 0.78 0.30-4.20 Urate SerPl-mCnc 03/14/2017 Urate SerPl-mCnc 7.9 High 3.5-7.2 C-Reactive 03/14/2017 C-Reactive < 2.9 mg/L <3.0 24 Protein,Quant Protein,Quant Reflex add FT3? Y 24 Reflex add FT4? Y 24 CBS W/Automated Diff 03/14/2017 White Blood Count 15.9 K/uL High 3.4-10.5 24 Red Blood Count 6.31 M/uL High 4.20-5.80 24 Hemoglobin 12.9 gm/dL 12.8-17.0 24 Hematocrit 38.7 % 38.0-48.0 24 Mean Cell Volume 61.3 fl Low 80.0-96.0 24 Mean Corpuscular HGB 20.4 pg Low 27.0-33.0 24 Mean Corpuscular HGB Conc 33.3 g/dL 31.7-36.0 24 Platelet Count 239 K/uL 150-400 24 Red Cell Distri Width SD 39.3 fl 36-51 24 Red Cell Distri Width %CV 19.6 % High 11.6-15.8 24 Mean Platelet Volume 12.0 fL High 6.6-10.6 24, 25 Neut# 11.18 K/uL High 1.8-7.0 24 Lymph # 2.94 K/uL 1.0-4.0 24 Cole # 1.07 K/uL High 0.0-0.8 24 Eos # 0.21 K/uL 0.0-0.5 24 Baso # 0.52 K/uL High 0.0-0.1 24 C-Reactive Protein,Cardiac 03/14/2017 C-Reactive Protein,Cardiac 2.68 mg/L <3.0 24 Reflex add FT3? Y 24 Reflex add FT4? Y 24 Rheumatoid Panel ([facility]) 03/14/2017 Sedimentation Rate 1 mm/hr 0-15 24, 26 Anti-Nuclear Antibodies Direct Negative AU/mL Negative 24 C-Reactive Protein,Quant <pending> 24 Uric Acid 03/14/2017 Uric Acid 7.9 mg/dL High 3.5-7.2 24 Reflex add FT3? Y 24 Reflex add FT4? Y 24 Rheumatoid Factor 03/14/2017 Rheumatoid Factor 61.4 IU/mL High 0.0-15.0 24 Screen Screen Reflex add FT3? Y 24 Reflex add FT4? Y 24 Differential-WBC Confirm 03/14/2017 Total Cells Counted 100 #CELLS 24 Myelocyte% 1 % High -0 24 Neutrophils% 72 % 33-73 24 Lymph% 21 % 20-42 24 Monocyte% 5 % 0-10 24 Eosinophil% 1 % 0-5 24 Platelet Estimate NORMAL 24 Polychromasia 0-1+ 24 Anisocytosis 0-1+ 24 Microcytosis 2+ 24 Tear Drop Cells 0-1+ 24 Path Review: 03/14/2017 Path Review: INDICATED,SLIDE <SEE 24, 27 NOTE> Slide Review 03/14/2017 Slide Review DIFF ORDERED 24 Vitamin B12 And 03/14/2017 Vitamin B12 1006 pg/mL High 193-986 24 Folate Folic Acid 10.6 ng/mL 3.1-17.5 24 Reflex add FT3? Y 24 Reflex add FT4? Y 24 TSH Reflex FT4 And/Or FT3 03/14/2017 Thyroid Stim Hormone 0.78 uIU/mL 0.30-4.20 24 Reflex add FT3? Y 24 Reflex add FT4? Y 24 Lupus Anticoagulant Reflex 03/14/2017 PTT-LA 35.5 sec 0.0-51.9 24, 28 DRVVT 39.5 sec 0.0-47.0 24 Note: Comment: . 24, 29 Lyme AB/Western Blot 03/14/2017 Lyme Total AB/Reflex < 0.91 ISR 0.00- 0.90 24, 30 Reflex To WB Lyme Disease Antibody,QT,Igm <0.80 index 0.00-0.79 24, 31 CBC W/Automated Diff 04/21/2014 White Blood Count 10.5 K/uL 3.4-10.5 Red Blood Count 6.02 M/uL High 4.20-5.80 Hemoglobin 12.4 gm/dL Low 12.8-17.0 Hematocrit 37.6 % Low 38.0-48.0 Mean Cell Volume 62.5 fl Low 80.0-96.0 Mean Corpuscular HGB 20.6 pg Low 27.0-33.0 Mean Corpuscular HGB Conc 33.0 g/dL 31.7-36.0 Platelet Count 230 K/uL 150-400 Red Cell Distri Width SD 38.2 fl 36-51 Red Cell Distri Width %CV 18.7 % High 11.6-15.8 Mean Platelet Volume 12.4 fL High 6.6-10.6 Neut# 6.33 K/uL 1.8-7.0 Lymph # 3.05 K/uL 1.2-4.0 Cole # 0.87 K/uL High 0.0-0.6 Eos # 0.14 K/uL 0.0-0.5 Baso # 0.10 K/uL 0.1-0.2 LDL Cholesterol Profile 04/21/2014 Cholesterol 164 mg/dL 120-200 Triglycerides 120 mg/dL 16-231 HDL Cholesterol 37 mg/dL 29-83 LDL-Cholesterol 103 mg/dL 62-185 Comprehensive Metabolic Panel 04/21/2014 Glucose 90 mg/dL 76-115 BUN 22 mg/dL 5-23 Creatinine 1.0 mg/dL 0.5-1.4 Glom Filtration Rate, Estimate >60 mL/min >60 If >60 mL/min >60 32 BUN/Creat 22.0 ratio Sodium 140 mmol/L 136-145 Potassium 4.3 mmol/L 3.5-5.1 Chloride 109 mmol/L High 98-107 Carbon Dioxide 26 mEq/L 18-29 Anion Gap 9 mEq/L 8-16 Calcium 9.1 mg/dL 8.5-10.1 Total Protein 7.5 g/dL 6.3-8.0 Albumin 4.2 g/dL 3.5-5.0 Globulin 3.3 g/dL 1.9-4.3 Alb/Glob 1.3 ratio Bilirubin,Total 0.7 mg/dL 0.2-1.2 Sgot/Ast 17 U/L 16-40 SGPT/Alt 19 U/L Low 30-65 Alkaline Phosphatase 80 U/L 50-136 Differential-WBC Confirm 04/21/2014 Total Cells Counted 100 #CELLS Myelocyte% 1 % High -0 Band% 1 % 0-8 Neutrophils% 61 % 33-73 Lymph% 28 % 17-56 Atypical Lymph% 2 % 0-7 Monocyte% 5 % 0-10 Eosinophil% 2 % 0-5 Platelet Estimate NORMAL Anisocytosis 1+ Microcytosis 1+ Differential Comment See Note 33 Laboratory test finding 12/15/2011 Vasectomy (Sterilization) See Note 34 1 C92.11 2 Note: Persistent reduction for 3 months or more in an eGFR <60 mL/min/1.73 m2 defines CKD. Patients with eGFR values >/=60 mL/min/1.73 m2 may also have CKD if evidence of persistent proteinuria is present. The original MDRD equation for estimated GFR is not valid for patients less than 18 years of age. Additional information may be found at www.kdoqi.org. 3 N39.0 4 URINE, CLEAN CATCH 5 BACK PAIN, LOWER ABDOMINAL PAIN 6 URINE, CLEAN CATCH 7 POSS FLU, FATUGE, BODY ACHES, COUGH 8 URINE, CLEAN CATCH 9 C92.11 10 Instrument flagged sample for slide review. Less than 10% Bands seen, no other immature WBC's seen. Platelet estimate=NORMAL 11 Note: Persistent reduction for 3 months or more in an eGFR <60 mL/min/1.73 m2 defines CKD. Patients with eGFR values >/=60 mL/min/1.73 m2 may also have CKD if evidence of persistent proteinuria is present. The original MDRD equation for estimated GFR is not valid for patients less than 18 years of age. Additional information may be found at www.kdoqi.org. 12 C92.11, 13 Result confirmed by repeat analysis. 14 Note: Persistent reduction for 3 months or more in an eGFR <60 mL/min/1.73 m2 defines CKD. Patients with eGFR values >/=60 mL/min/1.73 m2 may also have CKD if evidence of persistent proteinuria is present. The original MDRD equation for estimated GFR is not valid for patients less than 18 years of age. Additional information may be found at www.kdoqi.org. 15 Reviewed previous history, path review not indicated 16 Instrument flagged sample for slide review. Less than 10% Bands seen, no other immature WBC's seen. RBC morphology essentially normal. Platelet estimate= Normal 17 KIDNEY STONE? 18 URINE, CLEAN CATCH 19 C92.10 20 LARGE PLATELETS PRESENT 21 Reviewed previous history, path review not indicated SLIDE SENT FOR MCV<70 03/14/17 22 Note: Persistent reduction for 3 months or more in an eGFR <60 mL/min/1.73 m2 defines CKD. Patients with eGFR values >/=60 mL/min/1.73 m2 may also have CKD if evidence of persistent proteinuria is present. The original MDRD equation for estimated GFR is not valid for patients less than 18 years of age. Additional information may be found at www.kdoqi.org. 23 03/28/17 1738: NEUT% previously reported as: 68.2 % Amended result called to: [] - 03/28/17 at 1738 03/28/17 1738: LYMPH % previously reported as: 22.8 % Amended result called to: [] - 03/28/17 at 1738 03/28/17 1738: MONO % previously reported as: 5.3 % Amended result called to: [] - 03/28/17 at 1738 03/28/17 1738: EO% previously reported as: 0.9 % Amended result called to: [] - 03/28/17 at 1738 03/28/17 1738: BAS% previously reported as: 2.8 H % Amended result called to: [] - 03/28/17 at 1738 24 D72.829 25 03/14/17 1153: NEUT% previously reported as: 70.2 % Amended result called to: [] - 03/14/17 at 1153 03/14/17 1153: LYMPH % previously reported as: 18.5 L % Amended result called to: [] - 03/14/17 at 1153 03/14/17 1153: MONO % previously reported as: 6.7 % Amended result called to: [] - 03/14/17 at 1153 03/14/17 1153: EO% previously reported as: 1.3 % Amended result called to: [] - 03/14/17 at 1153 03/14/17 1153: BAS% previously reported as: 3.3 H % Amended result called to: [] - 03/14/17 at 1153 26 Method: Sediplast Modified Gabinoergnorberto 27 INDICATED,SLIDE SENT Hematology Consultation Final Report Case# [id number] Final Diagnosis Review of Peripheral Blood Smear Review of peripheral blood smear confirms the hemogram findings. There is no anemia, but there is marked microcytosis, anisocytosis and hypochromia. No leptocytes ("pencil" cells) or target cells are present. Frequest dacryocytes ("tear-drop" RBCs) and RBCs with fine and coarse basophilic stippling are noted. RBC count is increased. Work-up for thalassemia minor is recommended. Because of the presence of coarse basophilic stippling along with microcytosis and hypochromia, lead level in the blood should be checked. S 03/15/17 Gross Description Peripheral blood smear Clinical Data MCV <70 Iqra Chen MD Reported 03/15/2017 at 3:59 PM, Report electronically signed Performed at: [facility] [id number] [place] [address] 03/17/17 0931: PATH REVIEW: previously reported as: INDICATED,SLIDE SENT Amended result called to: - 03/17/17 at 0931 28 Please note reference interval change 29 No lupus anticoagulant was detected. 30 Negative <0.91 Equivocal 0.91 - 1.09 Positive >1.09 31 Negative <0.80 Equivocal 0.80 - 1.19 Positive >1.19 IgM levels may peak at 3-6 weeks post infection, then gradually decline. Performed at: - [facility] [id number] [employer] Designer: Princess Mary MD, Phone: [phone] Performed at: - [facility] [address] [id number] [employer]er: Michelle Mitchell MD, Phone: [phone] Note: Persistent reduction for 3 months or more in an eGFR <60 mL/min/1.73 m2 defines CKD. Patients with eGFR values >/=60 mL/min/1.73 m2 may also have CKD if evidence of persistent proteinuria is present. The original MDRD equation for estimated GFR is not valid for patients less than 18 years of age. Additional information may be found at www.kdoqi.org. 33 LARGE PLATELETS PRESENT 34 OPERATION/PROCEDURE Bilateral vasectomy DIAGNOSIS: "VAS DEFERENS, RIGHT \\E&E\\ LEFT, BILATERAL VASECTOMY": COMPLETE CROSS SECTIONS SEEN. WYAlfredo/luis felipe 1430 GROSS Part 1; The specimen is received in a single container additionally labeled "RIGHT". This contains a wilburn cylindrical 1.3 cm. in length piece of grossly recognizable vas deferens. This is sectioned and submitted within a single cassette. Part 2; The specimen is received in a single container additionally labeled "LEFT". This contains a wilburn cylindrical 1.7 cm. in length piece of grossly recognizable vas deferens. This is sectioned and submitted within a single cassette. WS/luis felipe MICROSCOPIC Sections from both vas show complete cross sections of normal appearing vas deferens. PRE OPERATIVE DIAGNOSIS Sterilization REVIEW CODE CODE: I PRINCESS Saravia MD 12/16/11 1525 Procedures Date CPT Code Description Status 01/25/2018 20988 Measurement Post Voiding Residual Urine By Completed Ultrasound,Non-Imaging 01/25/2018 37564 complex uroflowmetry electronic Completed 11/16/2017 74384 Echocardiogram Complete Completed 10/25/2017 08252 EKG-Tracing And Report Completed 03/21/2017 19747 Biopsy, Needle/Trocar Completed 04/11/2014 96048 EKG-Tracing And Report Completed 04/10/2013 98190 EKG-Tracing And Report Completed 01/05/2012 61842 ECHO [employer] Performance Continuous Completed Electrocardio 01/04/2012 65339 EKG-Tracing And Report Completed 01/04/2012 97762 EKG-Tracing And Report Completed 01/04/2012 22241 EKG-Tracing And Report Completed 12/15/2011 05571 Vasectomy, unilat or bilat Completed 11/21/2011 87088 EKG-Tracing And Report Completed 11/02/2011 26461 Holter Monitor 24HR Inter/Report Completed 08/28/2006 Colonoscopy Completed Encounters Type Date Location Provider CPT E/M Dx Office Visit 02/12/2018 8:30a [place] [address] C92.11 D64.9 Office Visit 02/02/2018 12:45p Surgical Office Floyd Mcdaniels 87323 K59.09 Waylon Mcmillan K57.30 K60.2 C92.11 Office Visit 01/25/2018 1:00p Urology Iesha Gilmore M.D. 77609 N40.1 N41.0 R31.9 Office Visit 10/25/2017 1:40p Cardiology Office Nghia Clement, [address] C92.11 Waylon, [facility] Office Visit 10/13/2017 8:30a [place] [address] C92.11 F17.210 J06.9 D64.9 K64.9 Office Visit 06/30/2017 8:45a [place] [address] C92.11 F17.210 Office Visit 04/25/2017 1:30p [place] [address] C92.10 F17.210 Office Visit 03/28/2017 10:00a [place] [address] C92.10 F17.210 J06.9 Office Visit 03/20/2017 10:00a [place] [address] C92.10 F17.210 Office Visit 03/14/2017 10:00a [place] [address] D72.829 Z71.6 Office Visit 04/11/2014 8:30a Cardiology [place]ros Roach ANP 49[address] 786.59 305.1 401.1 Office Visit 04/10/2013 10:45a [place] [address] 786.59 401.1 Office Visit 04/05/2012 1:10p [place] [address] 786.59 401.1 Office Visit 01/04/2012 2:20p [place] [address] 786.59 401.1 305.1 Office Visit 11/28/2011 10:15a [place] [address] V25.2 V15.82 300.00 Office Visit 11/21/2011 9:00a [place] [address] 786.50 786.50 272.2 272.2 401.1 305.1 305.1 Office Visit 11/02/2011 4:09p [place] [address] 786.50 Office Visit 09/13/2010 10:15a [place] [address] 843.8 Plan of Care 06/13/2018 - Jorge Shah, DOC92.11 Chronic myeloid leukemia, BCR/Abl- positive, in remissionFollow up:4 [id number] Anemia, unspecified
[2018-06-26 17:01] VITALS: BP 129/74
--- NOTE | 2018-06-26 18:12 | UC ---
Respiratory Complaint HPI - HPI Summary HPI Summary: The patient is a 52-year-old male that presents here with cough and wheezing for approximately 2 weeks. He has been hoarse. His cough is productive of sputum. He has had chills. He has had bronchitis in the past. 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 Denies any history of pneumonia.for the past 2 days he has had left post thoracic back pain. - History of Current Complaint Chief Complaint: UCBackPain Stated Complaint: BACK COMPLAINT, ST, COUGH Time Seen by Provider: 06/26/18 18:00 Hx Obtained From: Patient Onset/Duration: Gradual Onset, Lasting Days Timing: Constant Severity Initially: Moderate Severity Currently: Moderate Pain Intensity: 5 Pain Scale Used: 0-10 Numeric Character: Cough: Productive Aggravating Factors: Nothing Alleviating Factors: Nothing Associated Signs And Symptoms: Positive: Chills, Wheezing, Nasal Congestion, Hoarseness. Negative: Dyspnea, Fever, Pleuritic Chest Pain, Hemoptysis, Dizziness, Calf Pain, Calf Swelling, Edema, URI, Sinus Discomfort - Allergies/Home Medications Allergies/Adverse Reactions: Allergies Allergy/AdvReac Type Severity Reaction Status Date / Time No Known Allergies Allergy Verified 06/26/18 17:01 PMH/Surg Hx/FS Hx/Imm Hx Previously Healthy: Yes Respiratory History: Bronchitis Cancer History: Other Other Cancer History: CML Other History Of: Negative For: HIV, Hepatitis B, Hepatitis C, Anticoagulant Therapy - Surgical History Surgical History: Yes Surgery Procedure, Year, and Place: appendectomy. tonsillectomy - Family History Known Family History: Positive: Hypertension Negative: Cardiac Disease, Diabetes - Social History Alcohol Use: Occasionally Alcohol Amount: twice weekly Substance Use Type: None Smoking Status (MU): Light Every Day Tobacco Smoker Type: Cigarettes Amount Used/How Often: 1/2 ppd Length of Time of Smoking/Using Tobacco: 30 years Have You Smoked in the Last Year: Yes Household Exposure Type: Cigarettes - Immunization History Most Recent Influenza Vaccination: none Review of Systems Constitutional: Negative Skin: Negative Eyes: Negative ENT: Negative Respiratory: Cough Cardiovascular: Negative Gastrointestinal: Negative Genitourinary: Negative Motor: Negative Neurovascular: Negative Musculoskeletal: Negative Neurological: Negative Psychological: Negative All Other Systems Reviewed And Are Negative: Yes Physical Exam Triage Information Reviewed: Yes Appearance: Well-Appearing, No Pain Distress, Well-Nourished Vital Signs: Initial Vital Signs Temp 98.9 F 06/26/18 16:54 Pulse 64 06/26/18 16:54 Resp 17 06/26/18 16:54 BP 129/74 06/26/18 16:54 Pulse Ox 100 06/26/18 16:54 Vital Signs Reviewed: Yes Eyes: Positive: Conjunctiva Clear ENT: Positive: TMs normal - Left OK , Right -unable to vis due to cerumen, Hoarse voice, Uvula midline. Negative: Hearing grossly normal, Pharyngeal erythema, Nasal congestion, Nasal drainage, Tonsillar swelling, Tonsillar exudate, Trismus, Muffled voice, Sinus tenderness Neck: Positive: Supple, Nontender, No Lymphadenopathy Respiratory: Positive: No respiratory distress, No accessory muscle use, Wheezing Cardiovascular: Positive: RRR, No Murmur Musculoskeletal: Positive: ROM Intact, No Edema Neurological: Positive: Alert, Muscle Tone Normal Psychological Exam: Normal Skin: Positive: Other - lesion below left eye suspicous for BCC UC Diagnostic Evaluation - Laboratory O2 Sat by Pulse Oximetry: 100 - normal/not hypoxic - Radiology Radiology Interpretation Completed By: ED Physician Summary of Radiographic Findings: NAD Respiratory Course/Dx - Differential Dx/Diagnosis Provider Diagnoses: Acute bronchitis with bronchospasm Discharge - Sign-Out/Discharge Documenting (check all that apply): Patient Departure All imaging exams completed and their final reports reviewed: No - Discharge Plan Condition: Stable Disposition: HOME Prescriptions: Amoxicillin PO (*) [Amoxicillin 875 MG (*)] 875 mg PO BID #14 tab predniSONE [Deltasone 20 MG TAB] 40 mg PO DAILY #10 tab Patient Education Materials: Acute Bronchitis (ED) Referrals: Jorge Galvan DO [Primary Care Provider] - 2 Days () Additional Instructions: recheck for new or worsening symptoms YOUR OFFICAL XR READING IS PENDING YOU CAN CALL TOMORROW LATE MORNING FOR THE RESULTS [phone] - Billing Disposition and Condition Condition: STABLE Disposition: Home
[2018-06-26] MEDS ORDERED: predniSONE TAB* 20 MG PO ONE (18:44)
[2018-06-26] MEDS ORDERED: Albuterol HFA INHALER* 8 gm MDI INH ONE (18:44)
--- NOTE | 2018-06-27 07:50 | RAD ---
Indication: Wheezing, back pain. 2 views the chest including dual energy PA views are reviewed and compared to previous exam dated January 07, 2017. No mediastinal shift is noted. Heart is of normal size and configuration. Lung luther show no pleural fluid, pneumonia or pneumothorax. IMPRESSION: No active cardiopulmonary disease is noted. R0
--- NOTE | 2018-06-27 08:21 | UC ---
- Progress Note Progress Note: Patient Name: BETO FARIAS Medical Record#: [id number] Ordering Physician: Chaim Blanco MD Acct.#: [id number] : 1965 Age: 52 Sex: M Location: [facility] Exam Date: 06/26/181811 ADM Status: DEP ER Order Information: CHEST PA & LAT 2 VWS Accession Number: [id number] CPT: 28469 Indication: Wheezing, back pain. 2 views the chest including dual energy PA views are reviewed and compared to previous exam dated January 07, 2017. No mediastinal shift is noted. Heart is of normal size and configuration. Lung luther show no pleural fluid, pneumonia or pneumothorax. IMPRESSION: No active cardiopulmonary disease is noted. R0 <Electronically signed by Marichuy Mendez MD in OV> 06/27/18746 Dictated By: Marichuy Mendez MD Dictated Date/Time: 06/27/18746 Transcribed Date/Time: 06/27/18745 Copy to: CC:Chaim Blanco MD; Jorge Galvan DO Imaging [facility] [address] [address] ph ([phone]) ph ([phone]) ph ([phone]) This report is only to be considered final once signed by the Provider(s) as displayed in the "<Electronically Signed by >" field (s). Absence of a signature indicates the report is in a draft status and still needs to be finalized. In the event this document was created by someone other than the signing Provider, the individual initiating the document will be listed in the "Entered by:" or "Dictated by:" luther. 1 of 1 Discharge - Sign-Out/Discharge Documenting (check all that apply): Post-Discharge Follow Up All imaging exams completed and their final reports reviewed: No - Discharge Plan Condition: Stable Disposition: HOME Prescriptions: Amoxicillin PO (*) [Amoxicillin 875 MG (*)] 875 mg PO BID #14 tab predniSONE [Deltasone 20 MG TAB] 40 mg PO DAILY #10 tab Patient Education Materials: Acute Bronchitis (ED) Referrals: Jorge Galvan DO [Primary Care Provider] - 2 Days () Additional Instructions: recheck for new or worsening symptoms YOUR OFFICAL XR READING IS PENDING YOU CAN CALL TOMORROW LATE MORNING FOR THE RESULTS [phone] - Billing Disposition and Condition Condition: STABLE Disposition: Home
--- NOTE | 2018-06-27 08:22 | UC ---
Discharge - Sign-Out/Discharge Documenting (check all that apply): Post-Discharge Follow Up All imaging exams completed and their final reports reviewed: Yes - Discharge Plan Condition: Stable Disposition: HOME Prescriptions: Amoxicillin PO (*) [Amoxicillin 875 MG (*)] 875 mg PO BID #14 tab predniSONE [Deltasone 20 MG TAB] 40 mg PO DAILY #10 tab Patient Education Materials: Acute Bronchitis (ED) Referrals: Jorge Galvan DO [Primary Care Provider] - 2 Days () Additional Instructions: recheck for new or worsening symptoms YOUR OFFICAL XR READING IS PENDING YOU CAN CALL TOMORROW LATE MORNING FOR THE RESULTS [phone] - Billing Disposition and Condition Condition: STABLE Disposition: Home
== END 2018-06-26 19:00 | disposition home or self-care (01) ==
LOC: UCCORT 16:37
DX: J20.9 Acute bronchitis, unspecified (principal); F17.210 Nicotine dependence, cigarettes, uncomplicated
CPT/HCPCS: 71046; 99213; A9270-GY; G0463; J7512

== ENCOUNTER 2018-08-25 11:09 | Emergency (ER) | payer BC ==
[2018-08-25 11:43] VITALS: BP 140/78
--- NOTE | 2018-08-25 12:20 | UC ---
UC General HPI - HPI Summary HPI Summary: 1. sinus pain, pressure, congestion and burning x 1 week with worsening. Hx sinus infections and this is the same. 2. pt c/o pain in R side of back/lung area with cough x 2 days. no hx copd, fever, asthma or wheezing. hx same 8 weeks ago but was in other lung. 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 Currently on Sprycel but at a lower dosage for a drug trial to tx the CML. Pt states the Sprycel may have many side effects. + congestion with cough. - History of Current Complaint Chief Complaint: UCBackPain Stated Complaint: BACK AND SINUS COMPLAINTS Time Seen by Provider: 08/25/18 11:58 Hx Obtained From: Patient Onset/Duration: Gradual Onset Timing: Constant Pain Intensity: 5 Associated Signs & Symptoms: Positive: Cough. Negative: Fever, Hemoptysis, SOB , Wheezing - Allergy/Home Medications Allergies/Adverse Reactions: Allergies Allergy/AdvReac Type Severity Reaction Status Date / Time No Known Allergies Allergy Verified 08/25/18 11:36 Home Medications: Home Medications Ibuprofen TAB* [Motrin TAB* 800 MG] 800 mg PO ONCE 08/25/18 [History Confirmed 08/25/18] PMH/Surg Hx/FS Hx/Imm Hx - Additional Past Medical History Additional PMH: CML, sinusitis Other History Of: Negative For: HIV, Hepatitis B, Hepatitis C, Anticoagulant Therapy - Surgical History Surgical History: Yes Surgery Procedure, Year, and Place: appendectomy. tonsillectomy - Family History Known Family History: Positive: Hypertension Negative: Cardiac Disease, Diabetes - Social History Alcohol Use: Occasionally Alcohol Amount: twice weekly Substance Use Type: None Smoking Status (MU): Light Every Day Tobacco Smoker Type: Cigarettes Amount Used/How Often: 6-7 cigs/day Length of Time of Smoking/Using Tobacco: 30 years Have You Smoked in the Last Year: Yes Household Exposure Type: Cigarettes - Immunization History Most Recent Influenza Vaccination: none Vaccination Up to Date: Yes Review of Systems All Other Systems Reviewed And Are Negative: Yes Constitutional: Positive: Negative Skin: Positive: Negative Eyes: Positive: Negative ENT: Positive: Sinus Congestion, Sinus Pain/Tenderness Respiratory: Positive: Cough. Negative: Shortness Of Breath Cardiovascular: Positive: Negative Gastrointestinal: Positive: Negative Genitourinary: Positive: Negative Motor: Positive: Negative Neurovascular: Positive: Negative Musculoskeletal: Positive: Negative Neurological: Positive: Negative Psychological: Positive: Negative Physical Exam Triage Information Reviewed: Yes Appearance: Well-Appearing Vital Signs: Initial Vital Signs Temp 97.8 F 08/25/18 11:37 Pulse 60 08/25/18 11:37 Resp 16 08/25/18 11:37 BP 140/78 08/25/18 11:37 Pulse Ox 100 08/25/18 11:37 Vital Signs Reviewed: Yes Eyes: Positive: Conjunctiva Clear ENT: Positive: Nasal congestion, TMs normal, Sinus tenderness. Negative: Nasal drainage Neck: Positive: Supple, Nontender, No Lymphadenopathy Respiratory: Positive: Lungs clear, Normal breath sounds, Other: - Cough is congested. Pt notes tenderness with palpation R mid posterior chest wall, same pain with active ROM trunk and with cough. Cardiovascular: Positive: RRR, No Murmur Abdomen Description: Positive: Nontender, No Organomegaly, Soft Bowel Sounds: Positive: Present Musculoskeletal: Positive: ROM Intact, No Edema, Other: - No calf pain or cords Neurological: Positive: Alert Psychological: Positive: Age Appropriate Behavior Skin Exam: Normal Course/Dx - Course Course Of Treatment: BP illness/visit related. - Differential Dx - Multi-Symptom Differential Diagnoses: Other - cxr=unremarkable. exam c/w sinusitis and bronchitis. no concern for PE, pt is not sob, hypoxic, tachycardic, tachypnic and has no hemoptysis. he is in remission for the CML x 1.5 years and Sprcel does not have side effect for PE/DVT. hx supports a bronchitis as well and pain is reproducible. pt hx, pe and differential dx was discussed at length with Dr Murillo during pt's stay. - Diagnoses Provider Diagnosis: Sinusitis, Bronchitis Discharge - Sign-Out/Discharge Documenting (check all that apply): Patient Departure All imaging exams completed and their final reports reviewed: Yes - Discharge Plan Condition: Stable Disposition: HOME Prescriptions: DOXYcycline CAP(*) [DOXYcycline 100MG CAP(*)] 100 mg PO BID 10 Days #20 cap Patient Education Materials: Sinusitis (ED), Acute Bronchitis (ED) Referrals: Jorge Galvan DO [Primary Care Provider] - 7 Days - Billing Disposition and Condition Condition: STABLE Disposition: Home
== END 2018-08-25 13:10 | disposition home or self-care (01) ==
LOC: UCCORT 11:09
DX: J32.9 Chronic sinusitis, unspecified (principal); J40 Bronchitis, not specified as acute or chronic; F17.210 Nicotine dependence, cigarettes, uncomplicated
CPT/HCPCS: 71046; 99212; G0463

== ENCOUNTER 2019-02-01 17:05 | Emergency (ER) | payer BC ==
[2019-02-01 17:20] VITALS: BP 134/69
--- NOTE | 2019-02-01 17:32 | UC ---
Skin Complaint HPI - HPI Summary HPI Summary: 53 y/o male PMHX CML on remission presents to the urgent care c/o right side of neck w/ a itchy rash for the past 2 weeks. He also has sinus congestion w/ clear nasal discharge for the past week. He developed mild sore throat for the past 2 days. Pt has not taken anything to alleviate symptoms. Itchiness comes and goes. He denies change in medication, change in body lotions or detergent or eating a new food. Sore throat is mild 2/10 w/ swallowing. Pt denies fever , SOB, chest pain, abdominal pain, N/V/d, dizziness. - History of Current Complaint Chief Complaint: UCGeneralIllness Time Seen by Provider: 02/01/19 17:29 Stated Complaint: SKIN CONCERN (NECK),SORE THROAT Hx Obtained From: Patient Onset/Duration: Gradual Onset, Lasting Weeks - 2 weeks, Still Present, Worse Since - 2 days w/ sore throat Skin Exposure Onset/Duration: Weeks Ago - 2 weeks Timing: Constant Onset Severity: Mild Current Severity: Mild Pain Intensity: 2 - sore throat Pain Scale Used: 0-10 Numeric Location: Discrete - right side of neck Character: Pruritus, Redness Aggravating Factor(s): Touch Alleviating Factor(s): Nothing Associated Signs & Symptoms: Negative: Difficulty Breathing, Fever, Chills, Cough, Wheezing, Hoarseness, Throat Tightening, Drainage, Tenderness Related History: Possible Reaction to: Environmental Exposure - Allergy/Home Medications Allergies/Adverse Reactions: Allergies Allergy/AdvReac Type Severity Reaction Status Date / Time No Known Allergies Allergy Verified 02/01/19 17:21 PMH/Surg Hx/FS Hx/Imm Hx Previously Healthy: Yes Other Cancer History: CML Other History Of: Negative For: HIV, Hepatitis B, Hepatitis C, Anticoagulant Therapy - Surgical History Surgical History: Yes Surgery Procedure, Year, and Place: appendectomy. tonsillectomy - Family History Known Family History: Positive: Hypertension Negative: Cardiac Disease, Diabetes - Social History Occupation: Employed Full-time Lives: With Family Alcohol Use: Occasionally Alcohol Amount: twice weekly Substance Use Type: None Smoking Status (MU): Light Every Day Tobacco Smoker Type: Cigarettes Amount Used/How Often: 6-7 cigs/day Length of Time of Smoking/Using Tobacco: 30 years Have You Smoked in the Last Year: Yes Household Exposure Type: Cigarettes - Immunization History Most Recent Influenza Vaccination: none Vaccination Up to Date: Yes Review of Systems All Other Systems Reviewed And Are Negative: Yes Constitutional: Positive: Negative Skin: Positive: Rash - Rt side of neck w/ itchy rash Eyes: Positive: Negative ENT: Positive: Sore Throat, Nasal Discharge - clear, Sinus Congestion Respiratory: Positive: Negative Cardiovascular: Positive: Negative Gastrointestinal: Positive: Negative Genitourinary: Positive: Negative Motor: Positive: Negative Neurovascular: Positive: Negative Musculoskeletal: Positive: Negative Neurological: Positive: Negative Psychological: Positive: Negative Is Patient Immunocompromised?: No Physical Exam - Summary Physical Exam Summary: Vital Signs Reviewed: Yes General: well appearing, well nourished male in no acute apparent pain distress , sitting comfortably on examining table Eye Exam: Normal Eyes: Positive: Conjunctiva Clear - PERRLA< EOMI, fundi grossly normal ENT: Positive: Normal ENT inspection, Hearing grossly normal, Pharynx normal, TMs normal, edematous nasal mucosa w/ clear nasal discharge and positive clear PND Neck: Positive: Supple, Nontender, No Lymphadenopathy Respiratory: Positive: Chest non-tender, Lungs clear, Normal breath sounds, No respiratory distress Cardiovascular: Positive: RRR, No Murmur, Pulses Normal, Brisk Capillary Refill Abdomen Description: Positive: Nontender, No Organomegaly, Soft. Negative: CVA Tenderness (R), CVA Tenderness (L) Bowel Sounds: Positive: Present Musculoskeletal: Positive: Strength Intact, ROM Intact, No Edema Neurological: Positive: Alert, Muscle Tone Normal Psychological Exam: Normal Skin: Positive: Positive discrete macular erythematous patch non tender to palpation, no drainage observed. mild signs of excoriation, pulses WNL, capillary refill brisk, sensation WNL. Triage Information Reviewed: Yes Vital Signs: Initial Vital Signs Temp 99.4 F 02/01/19 17:17 Pulse 74 02/01/19 17:17 Resp 16 02/01/19 17:17 BP 134/69 02/01/19 17:17 Pulse Ox 97 02/01/19 17:17 Course/Dx - Course Course Of Treatment: 53 y/o male PMHX CML on remission presents to the urgent care c/o right side of neck w/ a itchy rash for the past 2 weeks. He also has sinus congestion w/ clear nasal discharge for the past week. He developed mild sore throat for the past 2 days. Pt has not taken anything to alleviate symptoms. Itchiness comes and goes. He denies change in medication, change in body lotions or detergent or eating a new food. Sore throat is mild 2/10 w/ swallowing. Pt denies fever , SOB, chest pain, abdominal pain, N/V/d, dizziness. Hx obtained. Pt w/ unspecified discrete eruption in the Rt side of her neck and rhinosinusitis on examination. Pt RxBenadryl PO and Triamcinolone topical cream to alleviate symptoms.Advised to use his Flonase and saline drops to clear sinuses. D/C instructions explained. Pt understood and agreed w/ plan of care and left the clinic ambulating and hemodynamically stable. - Differential Diagnoses - Skin Complaint Differential Diagnoses: Allergic Reaction, Contact Dermatitis, Local Allergic Reaction, Poison Anitha, Poison [place], Urticaria, Other - pharyngitis - Diagnoses Provider Diagnosis: Contact dermatitis, Acute rhinosinusitis Discharge - Sign-Out/Discharge Documenting (check all that apply): Patient Departure - d/C home All imaging exams completed and their final reports reviewed: No Studies - Discharge Plan Condition: Stable Disposition: HOME Prescriptions: diPHENhydraMINE PO* [Benadryl PO 25 MG TAB*] 25 mg PO TID PRN #30 tab PRN Reason: pruritus Triamcinolone 0.1% CREAM(NF) [Kenalog Cream 0.1%(NF)] 1 applic TOPICAL BID #1 tube Patient Education Materials: Contact Dermatitis (ED), Rhinosinusitis (ED) Referrals: Jorge Galvan DO [Primary Care Provider] - 3 Days Carmen Munoz [Medical Doctor] - If Needed Additional Instructions: 1- Please Benadryl PO to alleviate itchiness. Apply Triamcinolone topical cream as directed to alleviate rash and itchiness. Avoid exposure to the sun. 2-If symptoms do not improve or worsen please f/u with your PCP or Business Sales Consultant DR Braswell in 3 days for further evaluation and treatment. 3- If symptoms worsen and you develop SOB or difficulty breathing please go immediately to the ER for further management. 4- Use your Flonase nasal spray and saline drops as directed to clear your sinuses - Billing Disposition and Condition Condition: STABLE Disposition: Home
== END 2019-02-01 18:05 | disposition home or self-care (01) ==
LOC: UCCORT 17:05
DX: L25.9 Unspecified contact dermatitis, unspecified cause (principal); J01.90 Acute sinusitis, unspecified; F17.210 Nicotine dependence, cigarettes, uncomplicated
CPT/HCPCS: 87651; 99212; G0463

== ENCOUNTER 2019-04-27 08:10 | Emergency (ER) | payer BC ==
[2019-04-27 08:32] VITALS: BP 134/80
--- NOTE | 2019-04-27 08:43 | UC ---
General HPI - HPI Summary HPI Summary: Pt presents with c/o left lower rib pain and sinus congestion, pressure and pain. Pt states that he fell while on a surfboard on February 28. Pt states that he had rib pain immediately post accident but it improved. Pt states that rib pain worsened over the last few days as he was doing a lot of heavy lifting and moving. Pt also c/o nasal congestion, sinus pressure and pain X " a few days". Pt states that he has CML and it is currently in remission but that he "gets a sinus infection once and year" and believes he has one now. - History of Current Complaint Chief Complaint: UCUpperExtremity Stated Complaint: RIB PAIN Time Seen by Provider: 04/27/19 08:34 Hx Obtained From: Patient Onset/Duration: Sudden Onset, Lasting Weeks, Still Present, Worse Since - rib pain has worsened since recent physical exertion Timing: Constant Onset Severity: Moderate Current Severity: Moderate Pain Intensity: 5 Associated Signs & Symptoms: Positive: Back Pain, Other - sinus congestion, sinus pain, left side lateral and anterior rib pain ~ #7-9 - Allergy/Home Medications Allergies/Adverse Reactions: Allergies Allergy/AdvReac Type Severity Reaction Status Date / Time No Known Allergies Allergy Verified 04/27/19 08:26 Home Medications: Home Medications Ibuprofen TAB* [Advil TAB*] 600 mg PO Q6H PRN 04/27/19 [History Confirmed ] PMH/Surg Hx/FS Hx/Imm Hx Previously Healthy: Yes - has CML Other History Of: Negative For: HIV, Hepatitis B, Hepatitis C, Anticoagulant Therapy - Surgical History Surgical History: Yes Surgery Procedure, Year, and Place: appendectomy. tonsillectomy - Family History Known Family History: Positive: Hypertension Negative: Cardiac Disease, Diabetes - Social History Occupation: Employed Full-time Lives: With Family Alcohol Use: Occasionally Alcohol Amount: twice weekly Substance Use Type: None Smoking Status (MU): Heavy Every Day Tobacco Smoker Type: Cigarettes Amount Used/How Often: 1/2 PPD Length of Time of Smoking/Using Tobacco: Since Age 20 Have You Smoked in the Last Year: Yes Household Exposure Type: Cigarettes - Immunization History Most Recent Influenza Vaccination: none Vaccination Up to Date: Yes Review of Systems All Other Systems Reviewed And Are Negative: Yes Constitutional: Positive: Negative Skin: Positive: Negative ENT: Positive: Sinus Congestion, Sinus Pain/Tenderness Respiratory: Positive: Negative Cardiovascular: Positive: Negative Gastrointestinal: Positive: Negative Genitourinary: Positive: Negative Motor: Positive: Other - pain with movement Neurovascular: Positive: Negative Musculoskeletal: Positive: Arthralgia - left side rib pain Neurological: Positive: Negative Psychological: Positive: Negative Is Patient Immunocompromised?: No Physical Exam Triage Information Reviewed: Yes Appearance: Well-Appearing Vital Signs: Initial Vital Signs Temp 98.2 F 04/27/19 08:21 Pulse 64 04/27/19 08:21 Resp 18 04/27/19 08:21 BP 134/80 04/27/19 08:21 Pulse Ox 99 04/27/19 08:21 Vital Signs Reviewed: Yes Eye Exam: Normal ENT: Positive: Nasal congestion, Sinus tenderness Dental Exam: Normal Neck exam: Normal Respiratory Exam: Normal Respiratory: Positive: Normal breath sounds Cardiovascular Exam: Normal Musculoskeletal: Positive: Other: - tenderness left anterior lateral lower rib pain Neurological Exam: Normal Psychological Exam: Normal Skin Exam: Normal Diagnostics - Radiology No standard instances Radiology Interpretation Completed By: Radiologist - Route Vending Machine Servicer: Marichuy Mendez S ([id number]) Integration Assistant: SUDHA (SUDHA) Report Date: 2018 08:43:00 Report Status: Final ======= Start of Report Content Patient Name: BETO FARIAS Medical Record#: [id number] Ordering Physician: Jovita Henry LIBRARY HISTORIAN Acct.#: [id number] : 1965 Age: 53 Sex: M [facility]: [facility] Exam Date: 04/27/19842 ADM Status: REG ER Order Information: RIBS LT UNI W/PA CH MIN 3 VWS Accession Number: [id number] CPT: 65061 Indication: Fall, left rib injury. 3 views of left ribs are reviewed. There is slight deformity of the left eighth rib laterally for which a partially healed fracture is not excluded. Dual-energy PA views of the chest demonstrates no pneumothorax. No other fractures are noted. IMPRESSION: Deformity of the lateral aspect of the left eighth rib for which a fracture is not excluded. Lungs are clear with no pneumothorax. <Electronically signed by Marichuy Mendez MD in OV > 04/27/19904 Dictated By: Marichuy Mendez MD Dictated Date/Time: 04/27/19903 Transcribed Date/Time: 04/27/19903 Copy to: CC:Chaim Blanco MD; Jovita Henry NP; Jorge Galvan DO Imaging - [facility] [place] [address] [place] [address] ph ) ph [phone]) ph ([phone]) End of Report Content ==== Course/Dx - Differential Dx - Multi-Symptom Differential Diagnoses: Other - sinusitis - Diagnoses Provider Diagnosis: Sinusitis, Left rib fracture Discharge ED - Sign-Out/Discharge Documenting (check all that apply): Patient Departure All imaging exams completed and their final reports reviewed: Yes - Discharge Plan Condition: Stable Disposition: HOME Prescriptions: Amoxicillin PO (*) [Amoxicillin 875 MG (*)] 875 mg PO Q12H #20 tab Fexofenadine/Pseudoephedrine [Juanita-D 24 Hour Tablet] 1 each PO DAILY #7 tab.er.24h Patient Education Materials: Sinusitis (ED), Rib Fracture (ED) Referrals: Jorge Galvan DO [Primary Care Provider] - If Needed Additional Instructions: Please follow up with your PCP as scheduled. - Billing Disposition and Condition Condition: STABLE Disposition: Home - Attestation Statements Provider Attestation: Per institutional requirements, I have reviewed the chart, however, I was not consulted specifically or made aware of this patient by the midlevel provider. I did not personally evaluate, interact with , or disposition this patient.
== END 2019-04-27 09:28 | disposition home or self-care (01) ==
LOC: UCCORT 08:10
DX: S22.32XA Fracture of one rib, left side, initial encounter for closed fracture (principal); W22.8XXA Striking against or struck by other objects, initial encounter; Y93.18 Activity, surfing, windsurfing and boogie boarding; Y92.838 Other recreation area as the place of occurrence of the external cause; J32.9 Chronic sinusitis, unspecified; C92.11 Chronic myeloid leukemia, BCR/ABL-positive, in remission; F17.210 Nicotine dependence, cigarettes, uncomplicated
CPT/HCPCS: 99212; G0463